=== PATIENT | male | born 1980 | race Caucasian/White ===

== ENCOUNTER 2017-12-03 16:06 | Emergency (ER) | payer SELFPAY ==
[2017-12-03 16:45] VITALS: BP 119/93
--- NOTE | 2017-12-03 17:01 | UC ---
Hand/Wrist HPI - HPI Summary HPI Summary: Pt shut his R middle finger in a bus door 2 days ago. He is c/o pain and swelling plus notes balck under the nail. - History Of Current Complaint Hx Obtained From: Patient Onset/Duration: Sudden Onset Pain Intensity: 7 Character Of Pain: Throbbing Alleviating Factor(s): Nothing Associated Signs And Symptoms: Positive: Swelling, Redness, Bruising. Negative : Fever, Numbness/Tingling <Lorena Darling - Last Filed: 12/03/17 17:14> <Orly James - Last Filed: 12/03/17 18:17> - History Of Current Complaint Chief Complaint: UCUpperExtremity Stated Complaint: RIGHT MIDDLE FINGER COMPLAINT Time Seen by Provider: 12/03/17 16:54 - Allergies/Home Medications Allergies/Adverse Reactions: Allergies Allergy/AdvReac Type Severity Reaction Status Date / Time No Known Allergies Allergy Verified 12/03/17 16:45 PMH/Surg Hx/FS Hx/Imm Hx Previously Healthy: Yes - Surgical History Surgical History: None - Social History Occupation: Employed Full-time Alcohol Use: Occasionally Substance Use Type: None Smoking Status (MU): Light Every Day Tobacco Smoker - Immunization History Hx Tetanus, Diphtheria Vaccination: Yes <Lorena Darling - Last Filed: 12/03/17 17:14> Review of Systems Constitutional: Negative Skin: Negative Eyes: Negative ENT: Negative Respiratory: Negative Cardiovascular: Negative Gastrointestinal: Negative Genitourinary: Negative Motor: Negative Neurovascular: Negative Musculoskeletal: Other: - red, swelling, brusing tip R middle finger Neurological: Negative Psychological: Negative Is Patient Immunocompromised?: No All Other Systems Reviewed And Are Negative: Yes <Lorena Darling - Last Filed: 12/03/17 17:14> Physical Exam Triage Information Reviewed: Yes Appearance: Well-Appearing Vital Signs: Initial Vital Signs Temp 98.7 F 12/03/17 16:42 Pulse 84 12/03/17 16:42 Resp 16 12/03/17 16:42 BP 119/93 12/03/17 16:42 Pulse Ox 98 12/03/17 16:42 Vital Signs Reviewed: Yes Eyes: Positive: Conjunctiva Clear ENT: Positive: Normal ENT inspection Neck: Positive: Supple Respiratory: Positive: Lungs clear, Normal breath sounds Cardiovascular: Positive: RRR, No Murmur Abdomen Description: Positive: Nontender, No Organomegaly, Soft Bowel Sounds: Positive: Present Musculoskeletal: Positive: Other: - Tip of R middle finger is red around the nail with mild swelling and a large subungual hematoma. area is tender. s/v/m is intact. Neurological: Positive: Alert Psychological: Positive: Age Appropriate Behavior Skin Exam: Normal <Lorena Darling - Last Filed: 12/03/17 17:14> Vital Signs: Initial Vital Signs Temp 98.7 F 12/03/17 16:42 Pulse 84 12/03/17 16:42 Resp 16 12/03/17 16:42 BP 119/93 12/03/17 16:42 Pulse Ox 98 12/03/17 16:42 <Orly James - Last Filed: 12/03/17 18:17> Procedures - Procedure Summary Procedure Summary: R middle finger prep betadine. Cautery stick used to make a hole and moderate blood drained. Area cleared, antibiotic ointment and band aide applied. pt tolerated well and noted much relied from the pressure after. digit placed in frog splint to tx the possible fx. erythema around the nail remained thus will tx for skin infection as well. pt will f/u pcp at home in a week and seek immediate tx for any worsening. <Lorena Darling - Last Filed: 12/03/17 17:14> Hand/Wrist Course/Dx - Course Course Of Treatment: pt refusing an xray despite risk of missed fx and worsening or disability plus unlikely but from complications. he is a&ox3 , able to make decisions thus I must respect his refusal. - Differential Dx/Diagnosis Provider Diagnoses: Subungual hematoma R middle finger, paronychia R middle finger, possible fx R middle finger <Lorena Darling - Last Filed: 12/03/17 17:14> Discharge - Sign-Out/Discharge Documenting (check all that apply): Discharge - Billing Disposition and Condition Condition: STABLE Disposition: HOME <Lorena Darling - Last Filed: 12/03/17 17:14> - Billing Disposition and Condition Condition: STABLE Disposition: HOME <Orly James - Last Filed: 12/03/17 18:17> - Discharge Plan Condition: Stable Disposition: HOME Prescriptions: Cephalexin CAP* [Keflex CAP*] 500 mg PO TID #30 cap Patient Education Materials: Subungual Hematoma (ED), Finger Fracture (ED), Paronychia (ED) Referrals: No Primary Care Phys,NOPCP [Primary Care Provider] - Additional Instructions: FOLLLOW UP WITH YOUR DOCTOR IN [place] IN 1 WEEK. GET A RECHECK IMMEDIATELY FOR ANY WORSENING. FINGER SPLINT UNTIL CLEARED Attestation Statement User Type: Provider - I was available for consult. This patient was seen by the RAVI. The patient was not presented to, seen by, or examined by me. -Elizabeth <Orly James - Last Filed: 12/03/17 18:17>
== END 2017-12-03 17:23 | disposition home or self-care (01) ==
LOC: UCCORT 16:06
DX: S60.131A Contusion of right middle finger with damage to nail, initial encounter (principal); W23.0XXA Caught, crushed, jammed, or pinched between moving objects, initial encounter; Y92.811 Bus as the place of occurrence of the external cause; L03.011 Cellulitis of right finger; F17.200 Nicotine dependence, unspecified, uncomplicated
CPT/HCPCS: 11740; 99202; G0463